=== PATIENT | female | born 1975 | race Caucasian/White ===

== ENCOUNTER → 2020-03-04 11:38 | Outpatient (CLI) | payer OTHER, SELFPAY ==
--- NOTE | ~2020-03-04 | US_ITS ---
EXAMINATION: US thyroid DATE: 03/04/2020 11:56 INDICATION: Left nontoxic single thyroid nodule TECHNIQUE: Multiple ultrasound images of the thyroid were obtained. COMPARISON: None. FINDINGS: The right thyroid lobe measures 4.7 x 1.6 x 1.5 cm. The left thyroid lobe measures 4.9 x 2.2 x 2.2 c m. There is a 3.0 x 1.8 x 2.1 cm wider than tall mixed hypoechoic solid and cystic nodule in the lef t thyroid without echogenic foci (TI-RADS 3, mildly suspicious , FNA if >=2.5 cm, annual followup is >1.5 cm). There are couple subcentimeter wider than tall solid hypoechoic with well-defined margins a nd without echogenic foci in the right thyroid (TI-RADS 4, moderately suspicious , FNA if >=1.5 cm, a nnual followup is >1 cm), the larger measuring up to 6 cm in maximal diameter. There is normal echote xture, echogenicity and vascular flow throughout the surrounding thyroid gland. IMPRESSION: 1. Multinodular goiter. Recommend ultrasound-guided biopsy of the largest 3.0 cm TI RADS 3 left thyro id nodule. Reviewed, dictated and finalized at location B. NT PROJECT COORDINATOR IMPRESSION: 1. Multinodular goiter. Recommend ultrasound-guided biopsy of the largest 3.0 c m TI RADS 3 left thyroid nodule.
== END ==
PROVIDERS: Visit Provider Nurse Practitioner
DX: E04.2 Nontoxic multinodular goiter (principal)
CPT/HCPCS: 76536

== ENCOUNTER 2020-03-25 13:06 | Outpatient (CLI) | payer OTHER, SELFPAY ==
--- NOTE | ~2020-03-25 | US_ITS ---
EXAMINATION: US FNA w image guidance DATE: 03/25/2020 14:09 INDICATION: Nontoxic single thyroid nodule TECHNIQUE: A time-out was performed to verify the patient's name, date of , and procedure to be performed . The procedure and its benefits and risks were discussed with the patient. Risks specifically discus sed included bleeding and infection. The patient understood the risks and agreed to proceed. The neck was prepped and draped in the usual sterile manner. 3 mL 1% lidocaine was used for local anesthesia . 5 passes were made with a 25G needle into the solid cephalad margin of the nodule as well as the h ypervascular solid internal nodular component. Finally a 21G needle was advanced into the cystic comp onent of the lesion and fluid was aspirated. Both the solid fine-needle aspirate as well as the the a spirated fluid from the cystic component were delivered to the Department of pathology. Appropriate n eedle location was documented with continuous sonographic guidance. A sterile bandage was applied. Th ere were no immediate complications. FINDINGS: Grayscale ultrasound images demonstrate biopsy needles advanced into the previously noted 3.0 cm TI R ADS 3 mixed solid and cystic left thyroid nodule of concern. IMPRESSION: 1. Successful ultrasound-guided fine needle aspiration of a 3.0 cm TI RADS 3 left thyroid nodule. Reviewed, dictated and finalized at location A. CAID BILLER IMPRESSION: 1. Successful ultrasound-guided fine needle aspiration of a 3.0 cm TI RADS 3 l eft thyroid nodule.
== END 2020-03-25 13:07 | disposition home or self-care (01) ==
PROVIDERS: Visit Provider Nurse Practitioner Family
DX: E04.1 Nontoxic single thyroid nodule (principal)
CPT/HCPCS: 10005; 88104; 88108; 88173; 88305; 88307

== ENCOUNTER → 2020-04-14 12:07 | Outpatient (CLI) | payer OTHER, SELFPAY ==
--- NOTE | ~2020-04-14 | MM_ITS ---
EXAMINATION: MM screening michael BI w manuelito HISTORY: Screening mammogram TECHNIQUE: Craniocaudal and mediolateral oblique 3-D tomosynthesis images were obtained and synthetic 2-D images were generated. Bilateral rotated lateral CC views. CAD analysis was submitted and interp reted. COMPARISON: No prior mammogram is available for comparison at this institution. BREAST PARENCHYMAL COMPOSITION: FINDINGS: There is no evidence of suspicious mass, calcification, or architectural distortion to sugg est malignancy in either breast. There has been no suspicious interval change. IMPRESSION: 1. No mammographic evidence of malignancy. 2. Recommend routine screening mammography in one year. BI-RADS Category 1: Negative Reviewed, dictated and finalized at location A. T ASSISTANT
== END ==
PROVIDERS: Visit Provider Nurse Practitioner
DX: Z12.31 Encounter for screening mammogram for malignant neoplasm of breast (principal)
CPT/HCPCS: 77063; 77067

== ENCOUNTER → 2021-09-27 10:16 | Outpatient (CLI) | payer OTHER, SELFPAY ==
--- NOTE | ~2021-09-27 | MM_ITS ---
EXAMINATION: MM screening michael BI w manuelito HISTORY: Screening TECHNIQUE: Craniocaudal and mediolateral oblique 3-D tomosynthesis images were obtained and synthetic 2-D images were generated. CAD analysis was submitted and interpreted. COMPARISON: 04/14/2020 BREAST PARENCHYMAL COMPOSITION: The breasts are heterogeneously dense, which may obscure small masses . FINDINGS: There is no evidence of suspicious mass, calcification, or architectural distortion to sugg est malignancy in either breast. There has been no suspicious interval change. IMPRESSION: 1. No mammographic evidence of malignancy. 2. Recommend routine screening mammography in one year. BI-RADS Category 1: Negative Reviewed, dictated and finalized at location A.
== END ==
PROVIDERS: PCP Nurse Practitioner; Visit Provider Nurse Practitioner
DX: Z12.31 Encounter for screening mammogram for malignant neoplasm of breast (principal)
CPT/HCPCS: 77063; 77067

== ENCOUNTER 2021-12-04 03:18 | Observation (INO) | payer OTHER, SELFPAY ==
--- NOTE | ~2021-12-04 | US_ITS ---
US abdomen limited INDICATION: Right upper quadrant pain. PROCEDURE: Realtime right upper abdominal ultrasound. COMPARISON: CT dated 12/04/2021 FINDINGS: The pancreas is normal without focal mass or pancreatic ductal dilation. Liver echotexture is normal without focal mass or intrahepatic biliary dilatation. There is normal directional flow i n the portal vein. Gallbladder wall is mildly thickened. There are gallstones. There is possible trace pericholecystic f luid. Common bile duct measures 7 mm. No sonographic Flores's sign. IMPRESSION: 1: Cholelithiasis with gallbladder wall thickening and possible trace pericholecystic fluid. Borderli ne common duct measures 7 mm. This constellation of findings is compatible with cholecystitis. Reviewed, dictated and finalized at location A. IMPRESSION: 1: Cholelithiasis with gallbladder wall thickening and possible trace perichole cystic fluid. Borderline common duct measures 7 mm. This constellation of findi ngs is compatible with cholecystitis.
--- NOTE | ~2021-12-04 | CT_ITS ---
EXAMINATION: CT abdomen pelvis w con DATE: 12/04/2021 04:42 INDICATION: Right upper quadrant pain TECHNIQUE: Computed tomography (CT) of the abdomen and pelvis was performed without intravenous contr ast. The dose-length product was 908.52 mGy-cm. Automated exposure control and iterative reconstructi on technique were employed. COMPARISON: CT dated 09/14/2011 FINDINGS: Lung bases are unremarkable. Heart size normal. No significant pleural or pericardial effus ion. There is a hypodense lesion right hepatic lobe with a linear configuration, possibly focally dil ated duct. Gallbladder wall is thickened with possible pericholecystic fluid. No definite gallstones identified. Common duct is nondilated. The spleen, pancreas, adrenal glands and right kidney are unremarkable. There are nonobstructing left renal stones. No significant vascular abnormality. No lymphadenopathy. Small amount of free fluid in the pelvis. Sm all fat-containing umbilical hernia. Mild osteoarthritis of the hips. No acute osseous abnormality. N o free air. There is a 4.3 x 2.8 x 2.9 cm right adnexal cyst, likely ovarian. IMPRESSION: 1. Thickened gallbladder wall with possible pericholecystic fluid. Findings suspicious for cholecysti tis. Consider ultrasound correlation. 2: Right adnexal cyst measuring up to 4.3 cm. Consider correlation with ultrasound. Reviewed, dictated and finalized at location A. IMPRESSION: 1. Thickened gallbladder wall with possible pericholecystic fluid. Findings dinorah picious for cholecystitis. Consider ultrasound correlation. 2: Right adnexal cyst measuring up to 4.3 cm. Consider correlation with ultraso und.
[2021-12-04 03:22] VITALS: BP 183/95; PULSE 90; RESP 19; TEMP 36.6; O2SAT 100
--- NOTE | 2021-12-04 03:53 | ED.GENADULT ---
HPI - General Adult General Chief complaint: Abdominal Pain Stated complaint: Upper abd pain Time Seen by Provider: 12/04/21 03:35 History of Present Illness HPI narrative: Patient is a 46-year-old female presents the emergency department with chief complaint of abdominal pain. Patient reports that this evening she started having pain in the epigastric and right upper quadrant area that radiates to her back. Patient reports she had some similar episodes recently about 3 times that have all resolved spontaneously the patient reports that this evening she ate pizza and then started having the symptoms this evening. Patient reports that although the nausea but denies vomiting denies diarrhea the patient states that she is not had surgery on her gallbladder. Patient reports no fever or chills. Related Data Home Medications Medication Instructions Recorded Confirmed ergocalciferol (vitamin D2) 1,250 12/04/21 mcg (50,000 unit) capsule Allergies Allergy/AdvReac Type Severity Reaction Status Date / Time No Known Allergies Allergy Verified 12/04/21 03:24 Review of Systems Review of Systems: A 10 system review of systems was completed on the patient and is negative except for what is stated in the HPI. Nursing and ancillary documentation was reviewed. Exam Narrative: GENERAL: Well-appearing, well-nourished, and in no acute distress. HEAD: Normocephalic, atraumatic. EYES: PERRLA and EOMI. ENT: Nares clear, no rhinorrhea or epistaxis. Mucous membranes moist. NECK: Supple. CHEST: Clear to auscultation. No respiratory distress. HEART: Regular rate and rhythm. No murmur heard. Normal peripheral pulses. ABDOMEN: Soft, tender to palpation in the right upper quadrant, nondistended, normal active bowel sounds. EXTREMITIES: Normal range of motion. No edema. SKIN: Warm, dry, no rash. NEURO: No focal deficits. Alert and oriented x3. PSYCH: Normal mood and affect. Course Course Emergency Course: Patient's pain was improved with morphine and IV fluids. Laboratory studies appeared within normal limits CT scan showed evidence of acute cholecystitis with a thickened gallbladder wall and pericholecystic fluid. There is no signs of biliary obstruction on both labs and CT scan Vital Signs Vital signs: Vital Signs Temperature 36.6 C 12/04/21 03:22 Pulse Rate 90 12/04/21 03:22 Respiratory Rate 19 12/04/21 03:22 Blood Pressure 183/95 H 12/04/21 03:22 Pulse Oximetry 100 12/04/21 03:22 Oxygen Delivery Room Air 12/04/21 03:22 Temperature 36.6 C 12/04/21 03:22 Pulse Rate 90 12/04/21 03:22 Respiratory Rate 19 12/04/21 03:22 Blood Pressure 183/95 H 12/04/21 03:22 Pulse Oximetry 100 12/04/21 03:22 Oxygen Delivery Room Air 12/04/21 03:22 Medical Decision Making Vital Signs Vital Signs: Vital Signs Temperature 36.6 C 12/04/21 03:22 Pulse Rate 90 12/04/21 03:22 Respiratory Rate 19 12/04/21 03:22 Blood Pressure 183/95 H 12/04/21 03:22 Pulse Oximetry 100 12/04/21 03:22 Oxygen Delivery Room Air 12/04/21 03:22 Temperature 36.6 C 12/04/21 03:22 Pulse Rate 90 12/04/21 03:22 Respiratory Rate 19 12/04/21 03:22 Blood Pressure 183/95 H 12/04/21 03:22 Pulse Oximetry 100 12/04/21 03:22 Oxygen Delivery Room Air 12/04/21 03:22 Lab Data Result diagrams: 12/04/21 03:52 12/04/21 03:52 Labs: Lab Results 12/04/21 12/04/21 12/04/21 Range/Units 03:52 03:52 03:52 WBC 9.5 (4.5-10.0) K/mm3 RBC 4.80 (4.2-5.4) M/mm3 Hgb 13.6 (12.0-15.0) g/dL Hct 41.8 (37.0-47.0) % MCV 87.1 (80-100) fl MCH 28.3 (26-34) pg MCHC 32.5 (32-36) g/dl RDW 13.2 (11.5-14.5) % Plt Count 266 (150-375) k/mm3 MPV 10.1 (7.4-10.4) fl Immature Gran % (Auto) 0.3 (0-0.5) % Neut % (Auto) 62.2 (45.5-73.1) % Lymph % (Auto) 28.9 (18.3-44.2) % [place] % (Auto) 5.5 (2.6-8.5) % Eos % (Auto)
[2021-12-04] MEDS: SODIUM CHLORIDE 0.9% IV 1,000 ML 999 ML IV CONT (03:58)
[2021-12-04 03:59] LABS: Appearance Urine Clear (Clear); Bilirubin Urine Negative (Negative); Blood Urine Negative (Negative); Color Urine Yellow (Yellow); Glucose Urine UA Negative (Negative); Ketones Urine Negative (Negative); Leukocyte Esterase Ur 2+ LEU/UL (Negative); Nitrate Urine Negative (Negative); Protein Urine Negative (Negative); Specific Grav Ur 1.015 (1.001-1.035); Urobilinogen Urine 0.2 mg/dL (<2.0)
[2021-12-04] MEDS: MORPHINE SULFATE (*CRX) 4 MG/ML INJ IV PUSH (03:59)
[2021-12-04] MEDS: ONDANSETRON INJ 4 MG/2 ML VIAL IV PUSH (03:59)
[2021-12-04 04:02] LABS: Add Urine Microscopic? YES; Bacteria Urine Trace /hpf; Mucus Urine Rare /lpf; Squamous Epithelial Cell Urine Rare /hpf (Few); WBC Urine 16-20 /hpf
[2021-12-04 04:10] LABS: Basophils Absolute Auto 0.1 K/mm3 (0.0-0.1); Basophils Percent Auto 0.7 % (0.2-1.2); Eosinophils Absolute Auto 0.2 K/mm3 (0-0.3); Eosinophils Percent Auto 2.4 % (0-4.4); Hematocrit 41.8 % (37.0-47.0); Hemoglobin 13.6 g/dL (12.0-15.0); Immature Granulocyte Absolute 0.03 K/mm3 (0.00-0.031); Immature Granulocyte Percent A 0.3 % (0-0.5); Lymphocytes Absolute Auto 2.74 K/mm3 (0.9-3.2); Lymphocytes Percent Auto 28.9 % (18.3-44.2); Mean Corpuscular HGB Conc 32.5 g/dl (32-36); Mean Corpuscular Hemoglobin 28.3 pg (26-34); Mean Corpuscular Volume 87.1 fl (80-100); Mean Platelet Volume 10.1 fl (7.4-10.4); Monocytes Absolute Auto 0.5 K/mm3 (0.1-0.6); Monocytes Percent Auto 5.5 % (2.6-8.5); Neutrophils Absolute Auto 5.9 K/mm3 (1.3-6.7); Neutrophils Percent Auto 62.2 % (45.5-73.1); Platelet Count Result 266 k/mm3 (150-375); Red Cell Distribution Width 13.2 % (11.5-14.5); White Blood Count 9.5 K/mm3 (4.5-10.0)
[2021-12-04 04:15] LABS: Alanine Aminotransferase 26 U/L (6-35); Albumin Level 4.6 g/dL (3.5-5.1); Alkaline Phosphatase 57 U/L (38-126); Anion Gap 16 mmol/L (8-16); Aspartate Amino Transferase 30 U/L (14-36); Bilirubin,Total 0.6 mg/dL (0.2-1.3); Blood Urea Nitrogen 10 mg/dL (7-17); Calcium 8.8 mg/dL (8.4-10.2); Carbon Dioxide 24 mmol/L (22-30); Chloride 102 mmol/L (98-107); Estimated Glomerular Filt Rate 60; Glucose 100 mg/dL (65-110); Lipase 212 U/L (23-300); Potassium 3.6 mmol/L (3.4-5.0); Sodium 142 mmol/L (137-145)
[2021-12-04 06:45] LABS: SARS-CoV-2 RNA PCR Negative
[2021-12-04 07:09] VITALS: BP 147/81; PULSE 70; RESP 18; O2SAT 99
[2021-12-04 07:59] VITALS: BP 132/72; PULSE 70; RESP 18; O2SAT 100
--- NOTE | 2021-12-04 08:11 | ADMGEN ---
This patient, Delilah Block, was admitted to 2 Medical Room 244-. Patient/family oriented to hospital policies and general routines including ID bracelet, bed and alarms, visiting hours, pain management, procedures, bathroom and other care routines, personal items, smoking policy, room service/diet, and visiting hours. Information on how to activate the Rapid Response Team has been discussed. Patient/Family are encouraged to report perceived risks to care and to ask questions if they do not understand what they are told or what they should do.
[2021-12-04 08:15] VITALS: BP 168/71; PULSE 65; RESP 18; TEMP 36.4; O2SAT 100; BMI 34.5
[2021-12-04] MEDS: SODIUM CHLORIDE 0.9% IV 1,000 ML 125 ML IV CONT (09:27)
--- NOTE | 2021-12-04 13:35 | PM.SD2 ---
Same Day Admit/Disch: HPI History of Present Illness Chief complaint: RUQ abdominal pain Narrative: Delilah Block is a 46 year old female Who presented to the emergency department this morning with right upper quadrant abdominal pain that started last night after eating pizza. She has had a couple other prior episodes like this over the past month but usually the pain only lasts a couple hours. This pain was lasting all throughout the night and she was not getting any relief. In the emergency department a CT of her abdomen and pelvis was performed which showed evidence of acute cholecystitis. Her white blood count and liver enzymes were normal. Her pancreatic enzymes were normal. She was still continuing to have some pain in the emergency department therefore she was placed in the hospital for further evaluation and treatment. [facility] Past Medical History Medical History (Updated 12/04/21 @ 13:43 by [place] Russell DO) Kidney stones Surgical History Surgical History (Updated 12/04/21 @ 13:38 by Montana Russell DO) History of ureteroscopy Family History Family History (Updated 12/04/21 @ 13:38 by Montana Russell DO) Mother Gallbladder disease Social History Social History Smoking status: Never smoker Alcohol intake: current Drinks per week: 1 Substance use: never Has the Lack of Transportation Kept You From Medical Appointments or From Getting Medications?: No Within the Past 12 Months, Were You Worried Whether Your Food Would Run Out Before You Got Money to Buy More?: Never True What is Your Housing Situation Today?: I Have Housing Are You Worried That in the Next 2 Months, You May Not Have Your Own Housing to Live In?: No Do You Have Trouble Paying Your Heating Or Electricity Bill?: No Do You Have Trouble Paying For Medicines?: No Are You Currently Unemployed and Looking for Work?: No Highest Level of Education Completed: Bachelor's Degree Do You Have Trouble With Childcare or the Care of a Family Member?: No Spiritual care concerns: No Same Day Admit/Disch: Med Pre-admit Medications Home Medications Medication Instructions Recorded Confirmed Type ergocalciferol (vitamin D2) 1,250 1,250 mcg PO WEEKLY 12/04/21 12/04/21 History mcg (50,000 unit) capsule Exam Const: General: alert; No acute distress Orientation/consciousness: patient oriented x3 Limitations: no limitations HENMT: Head: normocephalic and atraumatic Ears: hearing grossly normal bilaterally Face/Nose/Sinus: Normal external nose present and Normal nares present Mouth: Yes Normal oral and palatal mucosa present and Yes moist mucous membranes Eyes: General: appearance normal, both eyes and all related structures Conjunctivae: conjunctivae normal Sclera: sclerae normal Pupils: Equal, round and reactive pupils present EOM: EOMs intact bilaterally Neck: Neck: normal visual inspection, full ROM, no lymphadenopathy, supple and no JVD Lymphatic: no lymphadenopathy noted Chest: Chest palpation & inspection: normal inspection of the chest Resp: Effort & Inspection: normal respiratory effort and able to speak in complete sentences Auscultation: clear to auscultation bilaterally Percussion: percussion normal Cardio: Jugular venous distension: no JVD Rate: regular rate Rhythm: regular rhythm Heart sounds: S1 normal heart sound present and S2 normal heart sound present Peripheral pulses: Peripheral pulses 2+ throughout GI: Inspection: normal to inspection GI Palp: No abdominal tenderness, Yes Soft to palpation, No Guarding due to palpation present (GI), No Hernia present and No Rebound tenderness present Percussion: Yes normal to percussion Auscultation: normal bowel sounds : General: Yes no CVA tenderness Back/Spine/Pelvis: Back: no CVA tenderness Skin: General skin exam: normal color and dry skin Neuro: General: patient oriented
[2021-12-04 14:00] VITALS: BP 143/70; PULSE 57; RESP 16; TEMP 36.4; O2SAT 100
== END 2021-12-04 14:50 | disposition home or self-care (01) ==
LOC: ANHED 05:47 → ANH2MED 08:04
PROVIDERS: Admitting Provider Surgery; Emergency Provider Emergency Medicine; Visit Provider Surgery
DX: K80.00 Calculus of gallbladder with acute cholecystitis without obstruction (principal); N83.291 Other ovarian cyst, right side; Z20.822 Contact with and (suspected) exposure to COVID-19; Z79.899 Other long term (current) drug therapy
CPT/HCPCS: 36415; 74177; 76705; 80053; 81001; 81025; 83690; 85025; 87086; 87088; 96361; 96365; 96375; 99285; G0378; J2270; J2405; J2543; J7030; Q9967; U0003; U0005

== ENCOUNTER 2021-12-30 08:31 | Observation (INO) | payer OTHER, SELFPAY ==
--- NOTE | ~2021-12-30 | CT_ITS ---
EXAMINATION: CT abdomen pelvis w con DATE: 12/30/2021 09:48 INDICATION: Right upper quadrant abdominal pain. Nausea and vomiting. TECHNIQUE: Computed tomography (CT) of the abdomen and pelvis was performed with 100 CC Omnipaque 350 intravenous contrast. Automated exposure control and iterative reconstruction technique were employe d. Exam dose: 576.91 mGy-cm total exam DLP. COMPARISON: 12/04/2021 Limited abdominal ultrasound examination 12/04/2021 CT abdomen pelvis FINDINGS: The lung bases are clear. Normal heart size. No pericardial or pleural effusion. Small sliding hiatal hernia. There is thickening and edema of the gallbladder wall. Cholelithiasis and gallbladder wall thickening or duct remnant on 12/04/2021 Limited abdominal ultrasound examination. Findings are consistent with acute cholecystitis. The liver, spleen, pancreas,, bile ducts, pancreatic duct, and adrenal glands are unremarkable. There is nonobstructive left nephrolithiasis. No ureteral calculus or hydroureteronephrosis. The urinary b ladder, uterus and adnexal areas are unremarkable except for left ovarian cysts, largest measuring up to approximately 2.6 cm maximal size. Mild free fluid in the posterior cul-de-sac. Normal caliber of the abdominal aorta. No intraperitoneal or retroperitoneal or pelvic mass lesion or adenopathy or ascites. Normal appendix. No bowel obstruction or intraperitoneal free air. Small fat-containing umbilical hernia. IMPRESSION: Cholelithiasis, acute cholecystitis Normal appendix Left nephrolithiasis nonobstructive Left ovarian cysts, measuring up to 2.6 cm, mild free fluid in the posterior cul-de-sac Reviewed, dictated and finalized at [facility] Reviewed, dictated and finalized at [facility]. 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
[2021-12-30 08:36] VITALS: BP 169/86; PULSE 60; RESP 16; TEMP 36.4; O2SAT 100
[2021-12-30 09:03] LABS: Basophils Absolute Auto 0.1 K/mm3 (0.0-0.1); Basophils Percent Auto 0.3 % (0.2-1.2); Hematocrit 37.2 % (37.0-47.0); Hemoglobin 12.6 g/dL (12.0-15.0); Immature Granulocyte Absolute 0.11 K/mm3 (0.00-0.031); Immature Granulocyte Percent A 0.6 % (0-0.5); Lymphocytes Absolute Auto 1.28 K/mm3 (0.9-3.2); Lymphocytes Percent Auto 6.9 % (18.3-44.2); Mean Corpuscular HGB Conc 33.9 g/dl (32-36); Mean Corpuscular Hemoglobin 28.1 pg (26-34); Monocytes Absolute Auto 0.4 K/mm3 (0.1-0.6); Monocytes Percent Auto 2.1 % (2.6-8.5); Neutrophils Absolute Auto 16.7 K/mm3 (1.3-6.7); Neutrophils Percent Auto 90.1 % (45.5-73.1); Platelet Count Result 266 k/mm3 (150-375); Red Blood Count 4.48 M/mm3 (4.2-5.4); Red Cell Distribution Width 13.2 % (11.5-14.5); White Blood Count 18.5 K/mm3 (4.5-10.0)
[2021-12-30 09:15] LABS: Alanine Aminotransferase 29 U/L (6-35); Albumin Level 4.8 g/dL (3.5-5.1); Alkaline Phosphatase 72 U/L (38-126); Anion Gap 11 mmol/L (8-16); Aspartate Amino Transferase 32 U/L (14-36); Bilirubin,Total 0.6 mg/dL (0.2-1.3); Blood Urea Nitrogen 14 mg/dL (7-17); Calcium 9.1 mg/dL (8.4-10.2); Carbon Dioxide 25 mmol/L (22-30); Chloride 102 mmol/L (98-107); Estimated CRCL calculation 74 ml/min; Estimated Glomerular Filt Rate > 60; Glucose 120 mg/dL (65-110); Lipase 137 U/L (23-300); Potassium 3.7 mmol/L (3.4-5.0); Sodium 138 mmol/L (137-145)
[2021-12-30 09:23] LABS: Appearance Urine Clear (Clear); Bilirubin Urine Negative (Negative); Blood Urine Trace-intact (Negative); Color Urine Yellow (Yellow); Glucose Urine UA Negative (Negative); Ketones Urine 4+ mg/dL (Negative); Leukocyte Esterase Ur Negative LEU/UL (Negative); Nitrate Urine Negative (Negative); Protein Urine 1+ mg/dL (Negative); pH Urine 8.5 (5.0-9.0)
[2021-12-30] MEDS: FAMOTIDINE 20 MG/2 ML VIAL IV PUSH (09:23)
[2021-12-30] MEDS: SODIUM CHLORIDE 0.9% IV 1,000 ML 999 ML IV CONT (09:23)
[2021-12-30] MEDS: ONDANSETRON INJ 4 MG/2 ML VIAL IV PUSH ×3 (09:24→17:45)
[2021-12-30 09:31] LABS: Bacteria Urine Trace /hpf; Mucus Urine Rare /lpf; Squamous Epithelial Cell Urine Few /hpf (Few); WBC Urine 0-3 /hpf
--- NOTE | 2021-12-30 09:32 | ED.ABDPAIN ---
HPI - Abdominal Pain General Chief Complaint: Abdominal Pain <Tamara Bearden APRN - Last Filed: 12/30/21 12:26> Stated Complaint: gallbladder attack <Tamara Bearden APRN - Last Filed: 12/30/21 12:26> Time Seen by Provider: 12/30/21 09:05 <Tamara Bearden APRN - Last Filed: 12/30/21 12:26> Source: patient <Tamara Bearden APRN - Last Filed: 12/30/21 12:26> Mode of arrival: ambulatory <Tamara Bearden APRN - Last Filed: 12/30/21 12:26> Limitations: no limitations <Tamara Bearden APRN Last Filed: 12/30/21 12:26> History of Present Illness HPI narrative: 46-year-old female with known history of cholecystitis about a month ago presents today with complaints of abdominal pain right upper quadrant that started around 1:00 last night. Patient states prior to pain and nausea she had turkey and roll. Patient also endorses this is the 3rd-4th attack in the last few days that she has had. She has a cholecystectomy scheduled in February by Dr. Galicia. Patient denies fever but does endorse increased right upper quadrant pain and nausea. Patient states she has been unable to keep any fluids down since about 1 AM this morning. She has no medications for nausea or or has not tried any pain medications at home. <Tamara Bearden SMOG TECHNICIAN - Last Filed: 12/30/21 12:26> Related Data Home Medications: Home Medications Medication Instructions Recorded Confirmed ergocalciferol (vitamin D2) 1,250 1,250 mcg PO WEEKLY 12/04/21 12/04/21 mcg (50,000 unit) capsule <Tamara Bearden SMOG TECHNICIAN - Last Filed: 12/30/21 12:26> Allergies/Adverse Reactions: Allergies Allergy/AdvReac Type Severity Reaction Status Date / Time No Known Allergies Allergy Verified 12/30/21 08:41 <Tamara Bearden SMOG TECHNICIAN - Last Filed: 12/30/21 12:26> Review of Systems Review of Systems: CONSTITUTIONAL: Denies fever, chills, or sweats. CARDIOVASCULAR: Denies chest pain, palpitations, or edema. RESPIRATORY: Denies cough or dyspnea. GASTROINTESTINAL: Right upper quadrant pain, nausea with vomiting. Denies abdominal diarrhea. GENITOURINARY: Denies dysuria or hematuria. SKIN: Denies rash or itching. MUSCULOSKELETAL: Denies back pain, joint pain, or myalgia. <Tamara Bearden APRN - Last Filed: 12/30/21 12:26> PMFSH Past Medical History Medical History: Medical History Kidney stones <Tamara Bearden APRN - Last Filed: 12/30/21 12:26> Surgical History Surgical History: Surgical History History of ureteroscopy <Tamara Bearden APRN - Last Filed: 12/30/21 12:26> Family History Family History: Family History Mother Gallbladder disease <Tamara Bearden APRN - Last Filed: 12/30/21 12:26> Social History Social History: Social History Smoking status: Never smoker Alcohol intake: current Drinks per week: 1 Substance use: never Lack of Transportation: No Lack of Food: Never True Current Housing: I Have Housing Concerned About Future Housing: No Difficulty Paying Gas/Electric Bills: No Difficulty Paying for Meds: No Currently Unemployed: No Education: Bachelor's Degree Difficulty w/ Childcare or Family Care: No Spiritual care concerns: No <Tamara Bearden APRN - Last Filed: 12/30/21 12:26> Exam Narrative: GENERAL: Well-appearing, well-nourished, and in mild distress due to vomiting. HEAD: Normocephalic, atraumatic. NECK: Supple. No adenopathy or masses. No carotid bruits or JVD CHEST: Clear to auscultation. No respiratory distress. No wheezes rales or rhonchi HEART: Regular rate and rhythm. No murmur heard. Normal peripheral pulses. ABDOMEN: Soft, nontender, nondistended, normal active bowel sounds. SKIN: Warm, dry, no rash. <Tamara Bearden, SMOG TECHNICIAN
[2021-12-30 09:33] LABS: Add Urine Microscopic? YES
[2021-12-30] MEDS: KETOROLAC 30 MG/ML VIAL (*BKC) IV PUSH ×2 (09:40→12:39)
[2021-12-30] MEDS: HYDROmorphone HCL INJ (*CRX) 1 MG/ML SYR 0.5 MG IV PUSH (09:41)
[2021-12-30] MEDS: HYDROmorphone HCL INJ (*CRX) 1 MG/ML SYR IV PUSH ×4 (10:52→23:40)
--- NOTE | 2021-12-30 12:22 | PM.IMHP ---
H&P: HPI History of Present Illness Date/Time: 12/30/21 12:22 Chief Complaint: Acute cholecystitis Narrative: The patient is a 46-year-old female presenting to the emergency department complaining of severe right upper quadrant, epigastric abdominal pain. The patient reports that she has had multiple severe episodes over the last few days. The patient reports associated poor appetite, nausea, bloating. The patient has presented in the past with cholecystitis and is actually set up for elective cholecystectomy in February. Review of Systems Constitutional: Constitutional: Reports as per HPI, Reports anorexia, Reports chills, Reports fatigue, Reports fever(s), Reports lethargy, Reports malaise, Reports poor appetite, Reports weakness, Denies weight gain and Denies weight loss Eyes: Eyes: Reports no additional eye complaints ENT: Reports system reviewed and no additional complaints, except as documented Cardiovascular: Cardiovascular: Reports no additional cardiovascular complaints Respiratory: Respiratory: Reports no additional respiratory complaints Gastrointestinal: Gastrointestinal: Reports as per HPI, Reports abdominal pain, Reports belching, Reports bloating, Denies change in stool character, Reports GI cramping, Reports early satiety, Reports heartburn, Reports nausea and Reports vomiting Genitourinary: Genitourinary: Reports no additional female genitourinary complaints Musculoskeletal: Musculoskeletal: Reports no additional musculoskeletal complaints Integumentary/Breasts: Skin/Breast: Reports system reviewed and no additional complaints, except as docu Neurologic: Reports system reviewed and no additional complaints, except as documented Psychiatric: Psychiatric: Reports no additional psychiatric complaints Endocrine: Endocrine: Reports no additional endocrine complaints Hematologic/Lymphatic: Hematologic/Lymphatic: Reports no additional hematologic/lymphatic complaints Allergic/Immunologic: Allergic/Immunologic: Reports no additional allergic/immunologic complaints [facility] Past Medical History Medical History Kidney stones Surgical History Surgical History History of ureteroscopy Family History Family History Mother Gallbladder disease Social History Social History Smoking status: Never smoker Alcohol intake: current Drinks per week: 1 Substance use: never Lack of Transportation: No Lack of Food: Never True Current Housing: I Have Housing Concerned About Future Housing: No Difficulty Paying Gas/Electric Bills: No Difficulty Paying for Meds: No Currently Unemployed: No Education: Bachelor's Degree Difficulty w/ Childcare or Family Care: No Spiritual care concerns: No Meds Home Medications and Allergies Home Medications Medication Instructions Recorded Confirmed Type ergocalciferol (vitamin D2) 1,250 1,250 mcg PO WEEKLY 12/04/21 12/04/21 History mcg (50,000 unit) capsule Allergies Allergy/AdvReac Type Severity Reaction Status Date / Time No Known Allergies Allergy Verified 12/30/21 08:41 Vital Signs Vital Signs - 24 hr 12/30/21 08:36 Temperature 36.4 C L Pulse Rate 60 Respiratory Rate 16 Blood Pressure 169/86 H Pulse Oximetry 100 Exam Const: General: cooperative, acute distress mild, tired appearing and uncomfortable Nutritional Appearance: overweight Orientation/consciousness: patient oriented x3 HENMT: Head: normal to inspection, normocephalic and atraumatic Eyes: General: appearance normal, both eyes and all related structures Neck: Neck: normal visual inspection, full ROM and no lymphadenopathy Chest: Chest palpation & inspection: normal inspection of the chest Resp: Auscultation: clear to auscultation bila
[2021-12-30 12:31] LABS: Influenza A QL RT-PCR Negative (Negative); Influenza B QL RT-PCR Negative (Negative); SARS-CoV-2 RNA PCR Negative
[2021-12-30] MEDS: SODIUM CHLORIDE 0.9% IV 1,000 ML 125 ML IV CONT ×2 (12:41→21:30)
[2021-12-30 12:49] VITALS: BMI 32.5
--- NOTE | 2021-12-30 12:49 | ADMGEN ---
This patient, Delilah Block, was admitted to 2 Medical Room 253-01. Patient/family oriented to hospital policies and general routines including ID bracelet, bed and alarms, visiting hours, pain management, procedures, bathroom and other care routines, personal items, smoking policy, room service/diet, and visiting hours. Information on how to activate the Rapid Response Team has been discussed. Patient/Family are encouraged to report perceived risks to care and to ask questions if they do not understand what they are told or what they should do.
[2021-12-30 14:40] VITALS: BP 142/71; PULSE 91; RESP 14; TEMP 36.8; O2SAT 100
[2021-12-30 21:59] VITALS: BP 152/78; PULSE 93; RESP 21; TEMP 36.9; O2SAT 100
[2021-12-30] MEDS: PROMETHAZINE HCL 25 MG/ML AMPUL 12.5 MG IV PUSH (23:42)
[2021-12-31] VITALS (15 sets, daily range): BP systolic 109–146; BP diastolic 60–68; PULSE 95–117; RESP 12–20; TEMP 36.8–37.5; O2SAT 90–100
[2021-12-31] MEDS: ONDANSETRON INJ 4 MG/2 ML VIAL IV PUSH (04:53)
[2021-12-31 05:12] LABS: Hematocrit 37.5 % (37.0-47.0); Hemoglobin 12.4 g/dL (12.0-15.0); Mean Corpuscular HGB Conc 33.1 g/dl (32-36); Mean Corpuscular Hemoglobin 28.6 pg (26-34); Mean Corpuscular Volume 86.4 fl (80-100); Mean Platelet Volume 10.6 fl (7.4-10.4); Platelet Count Result 242 k/mm3 (150-375); Red Blood Count 4.34 M/mm3 (4.2-5.4); Red Cell Distribution Width 13.4 % (11.5-14.5); White Blood Count 28.2 K/mm3 (4.5-10.0)
[2021-12-31 05:14] LABS: Anion Gap 10 mmol/L (8-16); Blood Urea Nitrogen 9 mg/dL (7-17); Calcium 8.1 mg/dL (8.4-10.2); Carbon Dioxide 22 mmol/L (22-30); Chloride 103 mmol/L (98-107); Estimated CRCL calculation 83 ml/min; Estimated Glomerular Filt Rate > 60; Glucose 125 mg/dL (65-110); Potassium 4.1 mmol/L (3.4-5.0); Sodium 135 mmol/L (137-145)
[2021-12-31] MEDS: SODIUM CHLORIDE 0.9% IV 1,000 ML 125 ML IV CONT (06:06)
[2021-12-31] MEDS: HYDROmorphone HCL INJ (*CRX) 1 MG/ML SYR IV PUSH (06:14)
[2021-12-31 06:38] LABS: Band Neutrophils Percent 8 % (0-6); Lymphocytes Absolute Manual 0.28 K/mm3 (1.1-4.5); Monocytes Absolute Manual 0.56 K/mm3 (0.1-0.90); Monocytes Percent Manual 2 % (3-9); Neutrophils Absolute Manual 27.35 K/mm3 (1.7-7.2); Neutrophils Percent Manual 89 % (46-73); Platelet Estimate Adequate (Adequate); Schistocytes None Seen (NORMAL); Total Cells Counted 100
[2021-12-31] MEDS: PROMETHAZINE HCL 25 MG/ML AMPUL 12.5 MG IV PUSH (06:42)
--- NOTE | 2021-12-31 09:28 | WPDHPUPDATE1 ---
History and Physical Update Update Date/Time: 12/31/21 09:28 History and Physical has been reviewed, including an updated exam of the patient. There are NO changes in the patient's condition. Risks, benefits, and alternatives have been discussed and questions answered. Patient agrees to proceed with procedure.
--- NOTE | 2021-12-31 09:53 | WPDANESEPPF ---
Anes - Initial Pre Proc Eval Procedure: Operation Date: 12/31/21 12:00 Proposed Procedures p Laparoscopic Cholecystectomy - Demetrice Serna MD Date/Time: 12/31/21 09:53 Surgeon: Demetrice Serna MD Pre Op Diagnosis: Acute Cholecystitis Patient Data Age: 46 Gender: F Height: 1.63 m Weight: 86 kg Last Vital Signs Temp 37.5 C 12/31/21 06:00 Pulse 95 12/31/21 06:00 Resp 20 12/31/21 06:00 BP 146/65 H 12/31/21 06:00 Pulse Ox 98 12/31/21 06:00 O2 Del Method Room Air 12/31/21 08:00 Allergies Allergy/AdvReac Type Severity Reaction Status Date / Time No Known Allergies Allergy Verified 12/30/21 08:41 Home Medications Medication Instructions Recorded Confirmed Type ergocalciferol (vitamin D2) 1,250 1,250 mcg PO WEEKLY 12/04/21 12/30/21 History mcg (50,000 unit) capsule Laboratory Tests 12/30/21 12/31/21 12/31/21 11:49 04:48 04:48 WBC 28.2 K/mm3 H K/mm3 (4.5-10.0) RBC 4.34 M/mm3 M/mm3 (4.2-5.4) Hgb 12.4 g/dL g/dL (12.0-15.0) Hct 37.5 % % (37.0-47.0) MCV 86.4 fl fl (80-100) MCH 28.6 pg pg (26-34) MCHC 33.1 g/dl g/dl (32-36) RDW 13.4 % % (11.5-14.5) Plt Count 242 k/mm3 k/mm3 (150-375) MPV 10.6 fl H fl (7.4-10.4) Immature Gran % (Auto) Not Reportable Neut % (Auto) Not Reportable Lymph % (Auto) Not Reportable [place] % (Auto) Not Reportable Eos % (Auto) Not Reportable Baso % (Auto) Not Reportable Lymph # (Auto) Not Reportable [place] # (Auto) Not Reportable Eos # (Auto) Not Reportable Baso # (Auto) Not Reportable Abs Immat Gran (auto) Not Reportable Absolute Neuts (auto) Not Reportable Absolute Nucleated RBC Not Reportable Total Counted 100 Neutrophils % (Manual) 89 % H % (46-73) Band Neutrophils % 8 % H % (0-6) Lymphocytes % (Manual) 1.0 % L % (18-44) Monocytes % (Manual) 2 % L % (3-9) Nucleated RBC % Not Reportable Abs Neuts (Manual) 27.35 K/mm3 H K/mm3 (1.7-7.2) Abs Lymphs (Manual) 0.28 K/mm3 L K/mm3 (1.1-4.5) Abs Monocytes (Manual) 0.56 K/mm3 K/mm3 (0.1-0.90) Platelet Estimate Adequate (Adequate) Schistocytes None seen (NORMAL) Sodium 135 mmol/L L mmol/L (137-145) Potassium 4.1 mmol/L mmol/L (3.4-5.0) Chloride 103 mmol/L mmol/L (98-107) Carbon Dioxide 22 mmol/L mmol/L (22-30) Anion Gap 10 mmol/L mmol/L (8-16) BUN 9 mg/dL D mg/dL (7-17) Creatinine 0.80 mg/dL mg/dL (0.7-1.0) Estim Creat Clear Calc 83 ml/min ml/min Estimated GFR > 60 (59 - ) Glucose 125 mg/dL H mg/dL (65-110) Calcium 8.1 mg/dL L mg/dL (8.4-10.2) Influenza A (RT-PCR) Negative (Negative) Influenza B (RT-PCR) Negative (Negative) SARS-CoV-2 RNA (RT-PCR) Negative Patient hx anesthesia problems: none Family hx anesthesia problems: none Results Review: All pre-operative results and documents have been reviewed as part of the pre-operative evaluation. [facility] Past Medical History Medical History Kidney stones Surgical History Surgical History History of ureteroscopy Family History Family History Mother Gallbladder disease Social History Social History Smoking status: Never smoker Alcohol intake: current Drinks per week: 1 Substance use: never Lack of Transportation: No Lack of Food: Never True Current Housing: I
[2021-12-31] MEDS: LACTATED RINGERS 1,000 ML 30 ML IV CONT ×2 (10:15→11:35)
[2021-12-31] MEDS: BUPIVACAINE/EPINEPHRINE 0.25% 10 ML VIAL 30 ML INFILTRATE (10:44)
--- NOTE | 2021-12-31 11:14 | W.PM.PROC2 ---
Procedure Note - Detailed Date of Procedure 12/31/21 Pre-op Diagnosis Acute Cholecystitis Post-op Diagnosis Other (acute gangrenous cholecystitis) Procedure Performed Laparoscopic cholecystectomy Surgeon Demetrice Serna MD Anesthesia General Indications 46-year-old female presented to the ED complaining of severel right upper quadrant abdominal pain associated with nausea and vomiting. Workup including imaging significant for acute cholecystitis, cholelithiasis. Findings gangrenous cholecystitis with cholelithiasis Description of Procedure The patient was taken to the operating room placed in the supine position. After adequate induction of general anesthesia, the patient was prepped and draped in normal sterile fashion. A time-out was then performed to verify the patient's identity as well as the procedure being performed. I then made a 5 mm incision in the infraumbilical region. Through this, a Veress needle was placed into the peritoneal cavity and CO2 gas was then insufflated. After adequate pneumoperitoneum was achieved, the Veress needle was removed and a 5 mm optiview trocar was placed through this incision under direct visualization. I then placed the laparoscope through this trocar site and under direct visualization placed a further 12 mm subxiphoid port as well as 2 additional 5 mm ports in the right upper abdomen. The gallbladder was then identified and was noted to be severely inflamed, distended, and full of gallstones. There was noted to be gangrenous changes of the gallbladder wall consistent with acute gangrenous cholecystitis. Given the amount of inflammation, I decompressed the gallbladder with an ovarian needle. I was then able to place a grasper at the dome of the gallbladder and this was retracted anterior and cephalad up over the liver. A 2nd retractor was then placed at the infundibulum and retracted laterally, this allowed visualization of the triangle of Calot. I then was able to visualize the cystic duct in its entirety from its proximal insertion into the gallbladder, to its distal junction with the common hepatic/common bile duct junction. At this point, I carefully skeletonized the proximal cystic duct with the [place] dissector. I then clipped and transected the proximal cystic duct. Next I visualized the cystic artery. Again the artery was skeletonized, clipped, and transected. I then used the Bovie cautery to take down the peritoneal attachments of the gallbladder off the liver bed. This was difficult given the amount of inflammation in the posterior space. Once the gallbladder specimen was completely detached, an endo-pouch was placed through the 12 mm port site. I then placed the gallbladder specimen into the Endo pouch and removed the endo-pouch from the 12 mm port site. The specimen will now be sent to pathology for further review. I then copiously irrigated the right upper quadrant. Some mild oozing was noted in the liver bed and this was controlled with the bovie cautery. Hemostasis was noted in the liver bed, the clips were noted to be in good position on both the cystic duct stump and the cystic artery stump. No other pathology was noted in the right upper quadrant. I then moved the laparoscope to the subxiphoid port. No iatrogenic injury or other pathology was noted in the lower abdomen. I then closed the 12 mm trocar site under direct visualization using the Shalom cone and 0 Vicryl suture. At this point, the abdomen was desufflated and all ports removed. All port sites were then closed with 4.O Monocryl subcuticular sutures. Dermabond was placed on each incision. The patient tolerated the procedure well, was extubated in the operating room postoperative and will be transferred to the recovery room in stable condition Estimated Blood Loss 20 Urine Output 900 Drains No Packing No Pathology Yes Complications No immediate complications Condition Stable Disposition PACU [facility] Billing Michael
[2021-12-31] MEDS: ERGOCALCIFEROL 50,000 UNITS CAPSULE 50000 UNITS PO (14:22)
[2021-12-31] MEDS: ACETAMINOPHEN 325 MG TABLET 650 MG PO (16:47)
--- NOTE | 2021-12-31 22:47 | PM.DS ---
DS: Admitting Diagnosis Discharge Date 12/31/21 Admitting Diagnosis acute cholecystitis DS: Discharge Diagnosis Discharge Diagnosis (1) Acute gangrenous cholecystitis: Code(s): K81.0 - Acute cholecystitis Status: Acute Assessment and Plan: status post laparoscopic cholecystectomy, continue routine postoperative care, home with p.o. analgesia, follow up 2 weeks DS: Summary Hospital Course Reason for hospitalization: acute cholecystitis Hospital Course: The patient is a 46-year-old female presenting to the emergency department complaining of severe right upper quadrant abdominal pain, intractable N/V. Workup in the emergency department, including imaging, was significant for acute cholecystitis. Given this, the patient was admitted to the surgical service and started on IV antibiotics. Upon evaluation of the patient, it was decided that she would need urgent cholecystectomy. Patient was taken to the operating room on 12/31 and laparoscopic cholecystectomy was performed, please see full operative report for details of that procedure. Postoperative, the patient did well and was transferred back to the floor. She was able to tolerate a bland diet and her pain was well controlled with p.o. analgesia. The pt was up and ambulating without difficulty. She will be discharged home with instructions for routine postoperative care. Prescriptions have been sent for analgesia. She will follow up in 2 weeks. Status at Discharge Functional status at discharge: independent ambulation Overall status at discharge: patient is progressing back to baseline Time Spent with Patient Time attestation: Total time spent providing and/or coordinating discharge services: Time spent: Less than 30 minutes Exam Const: General: cooperative, comfortable and no acute distress GI: Inspection: normal to inspection, distended and incision GI Palp: Yes abdominal tenderness, Yes Soft to palpation, Yes Tenderness to palpation present (GI), No Guarding due to palpation present (GI) and No Rigid due to palpation DS: Data Data Completed and Pending Pending studies at discharge: Pending at discharge 12/31/21 10:38 Surgical [PTH] Routine Labs on day of discharge: Labs from last 24 hours 12/31/21 12/31/21 04:48 04:48 WBC 28.2 H RBC 4.34 Hgb 12.4 Hct 37.5 MCV 86.4 MCH 28.6 MCHC 33.1 RDW 13.4 Plt Count 242 MPV 10.6 H Immature Gran % (Auto) Not Reportable Neut % (Auto) Not Reportable Lymph % (Auto) Not Reportable [place] % (Auto) Not Reportable Eos % (Auto) Not Reportable Baso % (Auto) Not Reportable Lymph # (Auto) Not Reportable [place] # (Auto) Not Reportable Eos # (Auto) Not Reportable Baso # (Auto) Not Reportable Abs Immat Gran (auto) Not Reportable Absolute Neuts (auto) Not Reportable Absolute Nucleated RBC Not Reportable Total Counted 100 Neutrophils % (Manual) 89 H Band Neutrophils % 8 H Lymphocytes % (Manual) 1.0 L Monocytes % (Manual) 2 L Nucleated RBC % Not Reportable Abs Neuts (Manual) 27.35 H Abs Lymphs (Manual) 0.28 L Abs Monocytes (Manual) 0.56 Platelet Estimate Adequate Schistocytes None seen Sodium 135 L Potassium 4.1 Chloride 103 Carbon Dioxide 22 Anion Gap 10 BUN 9 D Creatinine 0.80 Estim Creat Clear Calc 83 Estimated GFR > 60 Glucose 125 H Calcium 8.1 L Discharge Plan Discharge Attending physician on discharge: Demetrice Serna Discharging Clinician: Demetrice Serna Patient Disposition: Home, Self-Care Activity: other - see discharge instructions Diet: other - see discharge instructions Wound Care Instructions: other - see discharge instructions Discharge Instructions: DISCHARGE INSTRUCTION SHEET FOR HERNIA, GALLBLADDER AND APPENDIX SURGERIES DR. SERNA PATIENT TO TAKE HOME 1. May shower in 24 hours, no soaking in bath x 2weeks. 2. Call office for: Wound increasingly
== END 2021-12-31 18:25 | disposition home or self-care (01) ==
LOC: ANHED 09:05 → ANH2MED 12:16
PROVIDERS: Preventive Medicine Aerospace Medicine; Admitting Provider Surgery; Emergency Provider Nurse Practitioner Family; Visit Provider Surgery
PROC: 0FT44ZZ Resection of Gallbladder, Percutaneous Endoscopic Approach (ICD-10-PCS; CPT 47562; principal; 2021-12-31 12:00)
DX: K80.00 Calculus of gallbladder with acute cholecystitis without obstruction (principal); F10.90 Alcohol use, unspecified, uncomplicated; N20.0 Calculus of kidney; N83.202 Unspecified ovarian cyst, left side; Z20.822 Contact with and (suspected) exposure to COVID-19; Z79.899 Other long term (current) drug therapy; Z84.89 Family history of other specified conditions
CPT/HCPCS: 47562; 36415; 74177; 80048; 80053; 81001; 81025; 83690; 85025; 87636; 88304; 96361; 96365; 96375; 96376; 99285; A9270; G0378; J0131; J0330; J1100; J1170; J1885; J2250; J2405; J2543; J2550; J2704; J2710; J3010; J7030; J7120; Q9967

== ENCOUNTER → 2022-12-02 11:28 | Outpatient (CLI) | payer OTHER, SELFPAY ==
--- NOTE | ~2022-12-02 | MM_ITS ---
EXAMINATION: MM screening [facility] w manuelito HISTORY: Screening mammogram TECHNIQUE: Craniocaudal and mediolateral oblique 3-D tomosynthesis images were obtained and synthetic 2-D images were generated. Rotated lateral CC view of left breast. CAD analysis was submitted and in terpreted. COMPARISON: 09/27/2021, 04/10/2020 bilateral screening mammogram examinations BREAST PARENCHYMAL COMPOSITION: There are scattered areas of fibroglandular density. FINDINGS: There is no evidence of suspicious mass, calcification, or architectural distortion to sugg est malignancy in either breast. There has been no suspicious interval change. IMPRESSION: 1. No mammographic evidence of malignancy. 2. Recommend routine screening mammography in one year. BI-RADS Category 1: Negative Reviewed, dictated and finalized at location [facility].
== END ==
PROVIDERS: PCP Nurse Practitioner; Visit Provider Nurse Practitioner
DX: Z12.31 Encounter for screening mammogram for malignant neoplasm of breast (principal)
CPT/HCPCS: 77063; 77067

== ENCOUNTER 2024-02-29 11:12 | Outpatient (CLI) | payer OTHER, SELFPAY ==
--- NOTE | ~2024-02-29 | MM_ITS ---
EXAMINATION: MM screening [facility] BI w manuelito HISTORY: Screening TECHNIQUE: Craniocaudal and mediolateral oblique 3-D tomosynthesis images were obtained and synthetic 2-D images were generated. CAD analysis was submitted and interpreted. COMPARISON: Comparison to multiple prior studies sequentially, with oldest reviewed study dated 10/2020. BREAST PARENCHYMAL COMPOSITION: FINDINGS: Stable appearance to benign-appearing low-density mass in the subareolar location of the le ft breast. There is no evidence of suspicious mass, calcification, or architectural distortion to sug gest malignancy in either breast. There has been no suspicious interval change. IMPRESSION: 1. No mammographic evidence of malignancy. 2. Recommend routine screening mammography in one year. BI-RADS Category 2: Benign finding(s). Reviewed, dictated and finalized at location A. ACTOR
== END 2024-02-29 11:13 | disposition home or self-care (01) ==
LOC: MICIMG 11:13
PROVIDERS: PCP Nurse Practitioner; Visit Provider Nurse Practitioner
DX: Z12.31 Encounter for screening mammogram for malignant neoplasm of breast (principal)
CPT/HCPCS: 77063; 77067